=== PATIENT | male | born 1995 | race Caucasian/White ===

== ENCOUNTER → 2023-09-12 15:56 | Outpatient (REF) | payer OTHER, SELFPAY ==
[2023-09-19 04:32] LABS: HPV, High Risk Not Detected; HPV, High Risk Source Anal
== END ==
LOC: CLAB 15:56
PROVIDERS: ATTENDING PHYSICIAN Surgery
DX: A63.0 Anogenital (venereal) warts (principal)
CPT/HCPCS: 87624; 88112

== ENCOUNTER 2023-12-03 11:01 | Emergency (ER) | payer OTHER, SELFPAY ==
[2023-12-03 11:06] VITALS: BP 137/88
--- NOTE | 2023-12-03 14:51 | ED.MUSCINJ ---
HPI-Injury
General
Chief Complaint: Musculo-Skeletal Complaint
Source: patient
Exam Limitations: none
Time Seen by Provider: 12/03/23 11:20
Nursing documentation reviewed up to this point in time: agreed with
Travel History
Have you had any contact with someone who has COVID-19?: No
Do you have any symptoms of coronavirus? Fever > 100 degrees, chills, cough, shortness of breath, sore throat, loss of taste or smell, muscle aches, or headache?: No
History of Present Illness-Injury
Initial Injury comments:
28-year-old male presents with a right hand injury after punching the floor earlier today at home. He is unsure of his last tetanus immunization
Past History
Past History
ED Past Medical History: None and Psychiatric (Anxiety/depression, ADHD, PTSD, panic disorder)
ED Past Surgical History: Orthopedic
Social History
Tobacco: Non-smoker
Alcohol: Occasional
Drug: Marijuana
Personal: Single
Living: with family
Review of Systems
Review of Systems
Allergies reviewed?: Yes
All Other Systems: ROS reviewed and negative except as documented in HPI and ROS
Musculoskeletal: Reports other (Pain at knuckles of right hand)
Skin: Reports other (Scrapes knuckles of right hand)
Phy Exam
Physical Exam
Physical Exam:
PHYSICAL EXAMINATION:
General: no apparent distress, not acutely ill
Neuro: alert and oriented.
Psychiatric: well kept. interactive and cooperative
Musculoskeletal: Tenderness over the MCP joints of right hand. Mild swelling. Distal neurovascular intact. All flexor and extensor tendon function intact, moves with ease
Skin: Warm, pink. Small deep clean abrasions over MCP joints of the fourth and index fingers. No bleeding.
Injury Course
Orders/Labs/Results
Orders:
Orders
12/03/23 11:13
CR Hand - Right Min 3 Views Urgent
Comment:
Reason For Exam: pain
MDM/Problems Addressed
MDM/Problems Addressed:
28-year-old male presents with a right hand injury after punching the floor earlier today at home. He is unsure of his last tetanus immunization
Right hand with scrapes on the knuckles, mild swelling
X-ray right hand initially read by this examiner: No bony abnormality noted.
Wounds were cleansed, antibiotic ointment and dressings applied
Inform patient he should have a tetanus booster but he states 'I have PTSD and I really do not want to do that right now.'
Chronic conditions affecting care: Psychiatric illness (ADHD, anxiety, depression, PTSD)
*Critical Care Note
Total Time (30-74mins, 75-104mins- exclusive of procedures): Not Applicable
ED Attending Note
-
Portions of this chart may have been created with voice recognition software.� Occasional wrong word or��sound alike� substitutions may have occurred due to the inherent limitations of voice recognition software.
Discharge Plan
Departure
Patient Disposition: Home (Routine Discharge)
Date of Disposition: 12/03/23
Time of Disposition: 11:28
Patient with high blood pressure during this ER visit?: No
Condition: Good
Discharge Problem:
Contusion of right hand, Abrasion of right hand
Instructions: Contusion (DC), Using Cold for Pain, Abrasions ED
Activity Restrictions/Additional Instructions:
As we discussed, Tylenol or ibuprofen as needed for pain, your x-ray shows no broken bones.
Tetanus immunization is recommended
Interventions
Interventions:
*Risk Screen - Suicide Last Done: 12/03/23 11:10
*General Assessment Last Done: 12/03/23 11:10
*Neglect/Abuse Screening Last Done: 12/03/23 11:10
*Nursing Disposition Last Done: 12/03/23 11:37
ED-Musculoskeletal Assessment Last Done: 12/03/23 11:36
Discharge Date and Time
Discharge Date/Time: 12/03/23 11:45
Print Language: MAURITANIAN
== END 2023-12-03 11:45 | disposition home or self-care (01) ==
LOC: EMR 11:01
PROVIDERS: EMERGENCY PHYSICIAN Student in an Organized Health Care Education/Training Program; FAMILY PHYSICIAN Family Medicine
DX: S60.221A Contusion of right hand, initial encounter (principal); S60.511A Abrasion of right hand, initial encounter; W22.09XA Striking against other stationary object, initial encounter; F90.9 Attention-deficit hyperactivity disorder, unspecified type; F41.9 Anxiety disorder, unspecified; F32.A Depression, unspecified; F43.10 Post-traumatic stress disorder, unspecified
CPT/HCPCS: 99283; 73130

== ENCOUNTER 2025-01-15 04:53 | Emergency (ER) | payer OTHER, SELFPAY ==
[2025-01-15 04:54] VITALS: BP 141/85
[2025-01-15 05:22] VITALS: BMI 28.0
--- NOTE | 2025-01-15 05:54 | ED.GENMED ---
History of Present Illness
General
Chief Complaint: Musculo-Skeletal Complaint
Source: patient and family
Exam Limitations: none
Time Seen by Provider: 01/15/25 05:21
Nursing documentation reviewed up to this point in time: agreed with
History of Present Illness
History of Present Illness:
29-year-old male presenting to the emergency department today with concerns of right foot discomfort. Had a right ATFL repair yesterday. Lost his balance with his crutches and put weight on his right splinted ankle and foot. [place] sharp pain to
the area. He is presenting to ensure there is no significant injury otherwise. Denies additional symptoms. Still has some numbness to his foot from his popliteal nerve block.
Past History
Past History
ED Past Medical History: None and Psychiatric (Anxiety/depression, ADHD, PTSD, panic disorder)
ED Past Surgical History: Orthopedic
Social History
Tobacco: Non-smoker
Alcohol: Occasional
Drug: Marijuana
Personal: Single
Living: with family
Review of Systems
Review of Systems
Allergies reviewed?: Yes
All Other Systems: ROS reviewed and negative except as documented in HPI and ROS
Phy Exam
Physical Exam
Physical Exam:
GENERAL: Alert , in no apparent distress
EYE: pupils equal and reactive
NECK: Supple, no significant adenopathy.
ENT: o/p clr, mmm.
CARDIAC: Regular rate and rhythm .
LUNGS: Clear breath sounds bilaterally, no acute respiratory distress, no wheezes/rales/rhonchi
ABDOMEN: Soft, without focal tenderness, no r/g, no cvat
NEUROLOGICAL: Alert and oriented, no focal neuro deficits
SKIN: Warm and dry, skin intact.
MUSCULOSKELETAL: Splinted right ankle. Able to wiggle his toes and does feel general sensation to his toes distally. Does have a dorsalis pedis pulse no edema, well perfused.
PSYCH: Normal and appropriate interaction.
Course
Orders/Labs/Results
Orders:
Orders
01/15/25 05:21
CR Ankle - Right Min 3 Views * Urgent
Reason For Exam: pain post surgery
Vital Signs
Initial and Last Documented VS:
Initial Vital Signs
Temp Pulse Resp BP Pulse Ox
98.2 F 107 20 141/85 99
01/15/25 04:54 01/15/25 04:54 01/15/25 04:54 01/15/25 04:54 01/15/25 04:54
Last Documented Vital Signs
Temp Pulse Resp BP Pulse Ox
98.2 F 107 20 141/85 99
01/15/25 04:54 01/15/25 04:54 01/15/25 04:54 01/15/25 04:54 01/15/25 05:56
MDM/Problems Addressed
MDM/Problems Addressed:
29-year-old male presenting with right ankle discomfort. Had surgery yesterday on his right sided ATFL. Lost his balance on his crutches and put his full weight on his right foot plan for x-ray for further assessment. X-ray without acute
abnormality patient stable for close outpatient follow-up with his orthopedic doctor. Return precautions given.
*Pulse Oximetry
SaO2: 99
Oxygen Mode of Delivery: Room air
Patient hypoxic: no (99)
*Critical Care Note
Total Time (30-74mins, 75-104mins- exclusive of procedures): Not Applicable
ED Attending Note
-
Portions of this chart may have been created with voice recognition software.� Occasional wrong word or��sound alike� substitutions may have occurred due to the inherent limitations of voice recognition software.
Discharge Plan
Departure
Patient Disposition: Home (Routine Discharge)
Date of Disposition: 01/15/25
Time of Disposition: 06:51
Patient with high blood pressure during this ER visit?: No
Condition: Good
Covid-19: Not Applicable
Discharge Problem:
Ankle pain
Instructions: Sprain (DC)
Referrals:
Stiven Meadows DO [Family Provider, Family Practice]
Activity Restrictions/Additional Instructions:
You came to the emergency department today with concerns of fall after surgery. Here you had a normal x-ray. Please follow closely with your orthopedic doctor. Return for any worsening, new or concerning symptoms.
Interventions
Interventions:
*Risk Screen - Suicide Last Done: 01/15/25 04:58
*General Assessment Last Done: 01/15/25 04:58
*Neglect/Abuse Screening Last Done: 01/15/25 05:23
*ED COVID-19 Vaccine History Last Done: 01/15/25 04:58
ED-Musculoskeletal Assessment Last Done: 01/15/25 05:23
Discharge Date and Time
Print Language: OCCITAN
[2025-01-15 07:00] VITALS: BP 149/78
== END 2025-01-15 07:40 | disposition home or self-care (01) ==
LOC: EMR 04:53
PROVIDERS: EMERGENCY PHYSICIAN Student in an Organized Health Care Education/Training Program; FAMILY PHYSICIAN Family Medicine
DX: M25.572 Pain in left ankle and joints of left foot (principal)
CPT/HCPCS: 99283; 73610

== ENCOUNTER → 2025-02-08 14:22 | Outpatient (REF) | payer OTHER, SELFPAY | LOC: RAD 14:22 | PROVIDERS: ATTENDING PHYSICIAN Internal Medicine | DX: M79.645 Pain in left finger(s) (principal) | CPT/HCPCS: 73140 ==